=== PATIENT | female | born 1945 | race Caucasian/White ===

== ENCOUNTER 2019-02-06 10:18 | Outpatient (CLI) | payer MEDICARE, OTHER ==
[2019-02-06] MEDS ORDERED: BUFFERED LIDOCAINE 10 ML SYRINGE ONE (10:39)
[2019-02-06] MEDS ORDERED: IOTHALAMATE MEGLUMINE 50 ML VIAL ONE (10:39)
[2019-02-06] MEDS ORDERED: TRIAMCINOLONE 40 MG/ML VIAL IM ONE (14:16)
[2019-02-06] MEDS ORDERED: IOTHALAMATE MEGLUMINE 50 ML VIAL IVP ONE (14:16)
[2019-02-06] MEDS ORDERED: BUFFERED LIDOCAINE 10 ML SYRINGE IU ONE (14:16)
[2019-02-06] MEDS ORDERED: ROPIVACAINE 0.5% PF 20 ML VIAL SUBQ SCH (15:00)
--- NOTE | 2019-02-07 11:10 | XRAY Report ---
Reason: ENTHESOPATHIES OF RIGHT LOWER LIMB, EXCLUDING FOOT Procedure Date: 02/06/2019 Accession Number: [id number] / [id number] Procedure: [place] - Inj/Aspiration Major Joint CPT Code: FULL RESULT: EXAM: LEFT HIP STEROID INJECTION WITH FLUOROSCOPIC GUIDANCE EXAM DATE: 02/06/2019 12:10 PM. CLINICAL HISTORY: ENTHESOPATHIES OF RIGHT LOWER LIMB, EXCLUDING FOOT. COMPARISON: None. TECHNIQUE: The risks, benefits, and alternatives of the procedure were discussed with the patient. All questions were answered. Written and verbal consent were obtained. The hip joint was marked under fluoroscopy and prepped and draped in a sterile manner. Local anesthesia was performed with 1% lidocaine. A 22-gauge needle was then inserted into the hip joint. Following confirmation of positioning by contrast injection demonstrating contrast in the joint space, 3 mL of a solution containing 40 mg triamcinolone and 2 mL 0.5% ropivacaine was then injected. The needle was removed without immediate complication. Other: None. Fluoroscopy Time: 0.4 minutes. Number of Images: 9. FINDINGS: Bones and Joints: No fracture or subluxation. Injection: Fluoroscopic images demonstrate needle placement and contrast in the hip joint. IMPRESSION: Successful fluoroscopically guided steroid injection of the hip. [facility]
== END 2019-02-06 10:19 | disposition home or self-care (01) ==
LOC: DI 10:18
PROVIDERS: ATTEND Orthopaedic Surgery
DX: M76.891 Other specified enthesopathies of right lower limb, excluding foot (principal); S73.191A Other sprain of right hip, initial encounter
CPT/HCPCS: 20610; J2795; Q9961

== ENCOUNTER 2020-02-18 10:10 | Outpatient (CLI) | payer MEDICARE, OTHER | END 2020-02-18 10:11 | disposition home or self-care (01) | LOC: LAB.R 10:10 | PROVIDERS: ATTEND Physician Assistant Medical | DX: R30.0 Dysuria (principal) | CPT/HCPCS: 87086; 87181 ==

== ENCOUNTER 2020-05-02 07:00 | Outpatient (CLI) | payer MEDICARE, OTHER, BC | END 2020-05-02 23:59 | disposition home or self-care (01) | LOC: LAB.R 07:00 | PROVIDERS: ATTEND Registered Nurse | DX: N39.0 Urinary tract infection, site not specified (principal) | CPT/HCPCS: 87086 ==